=== PATIENT | female | born 1995 | race Caucasian/White ===

== ENCOUNTER 2021-03-07 16:35 | Emergency (ER) | payer SELFPAY ==
[~2021-03-07] VITALS: Ht 165.1 cm; Wt 61.3 kg
[2021-03-07 16:36] VITALS: BP 104/60
== END 2021-03-07 17:24 | disposition left against medical advice (07) ==
LOC: M ED 16:35
DX: Z53.21 Procedure and treatment not carried out due to patient leaving prior to being seen by health care provider (principal)